=== PATIENT | female | born 1955 | race Caucasian/White ===

== ENCOUNTER 2018-08-22 16:15 | Emergency (ER) | payer OTHER ==
[2018-08-22] MEDS: HYDROCODONE/APAP (5/325) TAB PO (17:25)
[2018-08-22] MEDS: KETOROLAC 30 MG INJ IM (17:25)
[2018-08-22] MEDS: ONDANSETRON (ODT) 4 MG TAB ODT (17:25)
== END 2018-08-22 18:11 | disposition home or self-care (01) ==
LOC: FTE 16:15
DX: M54.41 Lumbago with sciatica, right side (principal)
CPT/HCPCS: 96372; 99284-25; J1885

== ENCOUNTER 2018-12-23 12:34 | Emergency (ER) | payer OTHER ==
[2018-12-23] MEDS: DEXAMETHASONE 10 MG/ML 1 ML INJ IM (13:08)
[2018-12-23] MEDS: KETOROLAC 30 MG INJ IM (13:09)
== END 2018-12-23 14:08 | disposition home or self-care (01) ==
LOC: FTE 14:08
DX: M54.42 Lumbago with sciatica, left side (principal); M54.41 Lumbago with sciatica, right side
CPT/HCPCS: 96372; 99284-25

== ENCOUNTER 2019-05-02 19:48 | Emergency (ER) | payer OTHER ==
[2019-05-02] MEDS: DIPHENHYDRAMINE 50 MG CAP PO (21:59)
[2019-05-02] MEDS: DEXAMETHASONE 10 MG/ML 1 ML INJ IM (21:59)
== END 2019-05-02 22:12 | disposition home or self-care (01) ==
LOC: FTE 19:48
DX: L50.9 Urticaria, unspecified (principal)
CPT/HCPCS: 96372; 99284-25